=== PATIENT | male | born 1995 | race Caucasian/White ===

== ENCOUNTER 2018-03-20 09:21 | Emergency (ER) | payer OTHER ==
[~2018-03-20] VITALS: Ht 177.8 cm; Wt 110.0 kg
[2018-03-20] MEDS ORDERED: LORAZEPAM 1MG TABLET PO ONE (10:15)
[2018-03-20] MEDS ORDERED: OLANZAPINE 5MG TABLET ODT PO ONE (10:15)
[2018-03-20 10:18] LABS: BASOPHILS % 0.7 % (0.0-2.0); EOSINOPHILS % 1.3 % (0.0-5.0); HEMATOCRIT. 46.3 % (42.0-52.0); HEMOGLOBIN. 16.5 g/dL (14.0-18.0); LYMPHOCYTES % 26.7 % (20.0-50.0); MEAN CORPUSCULAR VOLUME 87.1 fL (80.0-94.0); MEAN PLATELET VOLUME 7.1 fl (7.4-10.4); MONOCYTES % 7.2 % (2.0-8.0); NEUTROPHILS % 64.1 % (40.0-76.0); PLATELET 262 x1000/uL (130-400); RED BLOOD CELL COUNT 5.32 mill/uL (4.7-6.1); RED CELL DISTRIBUTION WIDTH 13.5 % (11.6-14.6)
[2018-03-20 10:28] LABS: CHLORIDE 103 mEq/L (98-107)
[2018-03-20 10:32] LABS: ETHANOL BLOOD < 10 mg/dL
[2018-03-20 11:57] LABS: *AMPHETAMINES SCREEN URINE PRESUMTIVE POSITIVE (NEGATIVE)
[2018-03-20 11:58] LABS: *BARBITURATES SCREEN URINE NEGATIVE (NEGATIVE); *BENZODIAZEPINES SCREEN URINE NEGATIVE (NEGATIVE); *COCAINE SCREEN URINE NEGATIVE (NEGATIVE); METHADONE URINE SCREEN NEGATIVE (NEGATIVE)
[2018-03-20 11:59] LABS: CANNABINOID URINE SCREEN NEGATIVE (NEGATIVE); OPIATES URINE SCREEN NEGATIVE (NEGATIVE); PHENCYCLIDINE URINE SCREEN NEGATIVE (NEGATIVE)
[2018-03-21] MEDS ORDERED: LORAZEPAM 1MG TABLET PO ONE (10:15)
[2018-03-21] MEDS ORDERED: OLANZAPINE 10MG TABLET ODT PO ONE (10:15)
[2018-03-21 15:00] VITALS: BP 108/76
== END 2018-03-21 19:53 | disposition home or self-care (01) ==
LOC: ER 09:49
DX: F20.9 Schizophrenia, unspecified (principal); T43.622A Poisoning by amphetamines, intentional self-harm, initial encounter; F15.10 Other stimulant abuse, uncomplicated; Y92.89 Other specified places as the place of occurrence of the external cause
CPT/HCPCS: 36415; 80048; 80305; 80307; 80329; 85025; 99284; G0482

== ENCOUNTER 2018-03-21 20:45 | Emergency (ER) | payer OTHER ==
[~2018-03-21] VITALS: Ht 175.3 cm; Wt 91.0 kg
[2018-03-22] MEDS ORDERED: LORAZEPAM 2MG/ML CPJ IM ONE (00:45)
[2018-03-22 01:36] LABS: BASOPHILS % 0.5 % (0.0-2.0); CHLORIDE 103 mEq/L (98-107); EOSINOPHILS % 1.3 % (0.0-5.0); HEMATOCRIT. 49.2 % (42.0-52.0); LYMPHOCYTES % 28.4 % (20.0-50.0); MEAN CORPUSCULAR HEMOGLOBIN 30.4 pg (28.0-32.0); MEAN CORPUSCULAR VOLUME 87.9 fL (80.0-94.0); MEAN PLATELET VOLUME 7.1 fl (7.4-10.4); MONOCYTES % 6.3 % (2.0-8.0); NEUTROPHILS % 63.5 % (40.0-76.0); PLATELET 255 x1000/uL (130-400); RED CELL DISTRIBUTION WIDTH 13.6 % (11.6-14.6)
[2018-03-22 01:40] LABS: ETHANOL BLOOD < 10 mg/dL
[2018-03-22 06:59] LABS: CLARITY URINE CLEAR (CLEAR); COLOR URINE YELLOW (YELLOW); KETONES URINE TRACE (NEGATIVE); LEUKOCYTE ESTERASE URINE NEGATIVE (NEGATIVE); NITRITE URINE NEGATIVE (NEGATIVE); OCCULT BLOOD URINE NEGATIVE (NEGATIVE); PH URINE 5.5 (4.5-8.0); PROTEIN URINE NEGATIVE (NEGATIVE); SPECIFIC GRAVITY URINE 1.025 (1.005-1.030); UROBILINOGEN URINE 0.2 E.U./dL (0.2-1.0)
[2018-03-22 08:01] LABS: *AMPHETAMINES SCREEN URINE PRESUMTIVE POSITIVE (NEGATIVE); *BARBITURATES SCREEN URINE NEGATIVE (NEGATIVE); *BENZODIAZEPINES SCREEN URINE NEGATIVE (NEGATIVE); *COCAINE SCREEN URINE NEGATIVE (NEGATIVE)
[2018-03-22 08:02] LABS: CANNABINOID URINE SCREEN NEGATIVE (NEGATIVE); METHADONE URINE SCREEN NEGATIVE (NEGATIVE); OPIATES URINE SCREEN NEGATIVE (NEGATIVE); PHENCYCLIDINE URINE SCREEN NEGATIVE (NEGATIVE)
[2018-03-22] MEDS ORDERED: OLANZAPINE 5MG TABLET ODT PO ONE (09:45)
[2018-03-22 15:20] VITALS: BP 112/66
== END 2018-03-22 17:24 | disposition home or self-care (01) ==
LOC: ER 21:15
DX: R44.0 Auditory hallucinations (principal); R45.851 Suicidal ideations; R44.1 Visual hallucinations; R45.1 Restlessness and agitation; F15.10 Other stimulant abuse, uncomplicated; R45.850 Homicidal ideations
CPT/HCPCS: 36415; 80053; 80305; 80307; 80329; 81003; 85025; 96372; 99284; G0482; J2060; Z7610

== ENCOUNTER 2024-04-13 19:00 | Emergency (ER) | payer MEDICARE, MEDICAID ==
[~2024-04-13] VITALS: Ht 175.3 cm; Wt 136.0 kg
[2024-04-13 19:03] VITALS: O2SAT 99
[2024-04-13] MEDS: SODIUM CHLORIDE 0.9% 1,000 ML IV ONE (20:10)
[2024-04-13] MEDS: LORAZEPAM 2MG/ML INJ IV ONE (20:44)
[2024-04-13 21:43] LABS: BASOPHILS % 0.5 % (0.0-2.0); EOSINOPHILS % 1.3 % (0.0-5.0); HEMATOCRIT. 51.8 % (42.0-52.0); LYMPHOCYTES % 26.6 % (20.0-50.0); MEAN CORPUSCULAR HGB CONC 32.8 g/dL (31.0-37.0); MEAN CORPUSCULAR VOLUME 91.5 fL (80.0-94.0); MEAN PLATELET VOLUME 7.4 fl (7.4-10.4); MONOCYTES % 8.8 % (2.0-8.0); NEUTROPHILS % 62.8 % (40.0-76.0); PLATELET 258 x1000/uL (130-400); RED BLOOD CELL COUNT 5.66 mill/uL (4.7-6.1); WHITE BLOOD COUNT 10.1 x1000/uL (4.5-11.0)
[2024-04-13 21:51] LABS: CHLORIDE 105 mEq/L (98-107); POTASSIUM 3.4 mEq/L (3.5-5.1); SODIUM 138 mEq/L (136-145)
[2024-04-13 21:52] LABS: CARBON DIOXIDE 27 mEq/L (21-32)
[2024-04-13 21:53] LABS: CALCIUM 9.4 mg/dL (8.7-10.4)
[2024-04-13 21:57] LABS: CREATININE 0.8 mg/dL (0.6-1.3); GLUCOSE 100 mg/dL (70-105); UREA NITROGEN BLOOD 14 mg/dL (9-23)
[2024-04-13 21:58] LABS: ETHANOL BLOOD < 10 mg/dL (<10); TROPONIN I HIGH SENSITIVITY 5 ng/L (3.0-53)
[2024-04-13 21:59] LABS: ACETAMINOPHEN < 2 ug/mL (10-30)
[2024-04-13] MEDS: ONDANSETRON HCL 4MG/2ML INJ IV ONE (22:15)
[2024-04-13 22:17] VITALS: TEMP 98.4
[2024-04-13] MEDS ORDERED: LORAZEPAM 2MG/ML INJ IV ONE (22:30)
[2024-04-13 22:50] VITALS: BP 112/82; PULSE 115; RESP 24
== END 2024-04-13 22:51 | disposition home or self-care (01) ==
LOC: ER 19:00
DX: F15.10 Other stimulant abuse, uncomplicated (principal); F17.200 Nicotine dependence, unspecified, uncomplicated; F20.9 Schizophrenia, unspecified
CPT/HCPCS: 80048; 80307; 80329; 80320; 85025; 84484; 36415; 71045; 93005; 96361; 96374; 96375; 99285; J2060; J2405; J7030; G0480